=== PATIENT | female | born 1960 | race Caucasian/White ===

== ENCOUNTER 2017-07-24 06:37 | Emergency (ER) | payer OTHER ==
[2017-07-24 06:57] VITALS: BP 126/88; PULSE 64; TEMP 98.2; BMI 29.2
--- NOTE | 2017-07-24 07:17 | PDOC ---
History of Present Illness <Fely Jimenez - Last Filed: 07/24/17 08:46> - History of Present Illness Initial Comments: 07/24/17 08:49 56yo female presents to the ED for eval of L lateral neck pain that radiates from her ear to her shoulder. States pain has been present x 1 month. Seen her [employer] who ordered an ultrasound of the thyroid, that showed normal thyroid, poss cyst in parotid gland. Pt states she saw a therapist respiratory and has been doing PT. States her rheum told her friday her RF was negative. States she was dx with fibromyalgia on Friday and started cymbalta yesterday. States she couldn 't sleep overnight secondary to pain. Pt denies cp/sob. No mckeon. No f/c. No drainage from the ear. No nasal congestion. No sore throat. No trauma. No abd pain. No n/v/d. No paresthesias. No tingling. No weakness. No other complaints. <Cynthia Ordaz - Last Filed: 07/24/17 08:59> - General Chief Complaint: Pain Stated Complaint: PAIN,NECK Time Seen by Provider: 07/24/17 07:04 Past History <Fely Jimenez - Last Filed: 07/24/17 08:46> - Past Medical History Anemia: No Asthma: Yes (seasonal) Cancer: No Cardiac Disorders: No CVA: No COPD: No CHF: No Dementia: No Diabetes: No GI Disorders: No Disorders: No HTN: No Hypercholesterolemia: No Liver Disease: No Seizures: No Thyroid Disease: No - Surgical History Abdominal Surgery: Yes (myomectomy-reconstruction uterus) Appendectomy: No Cardiac Surgery: No Cholecystectomy: No Lung Surgery: No Neurologic Surgery: No Orthopedic Surgery: No - Psycho/Social/Smoking Cessation Hx Suicidal Ideation: No Smoking History: Never smoked Have you smoked in the past 12 months: No Information on smoking cessation initiated: No Hx Alcohol Use: No Drug/Substance Use Hx: No Substance Use Type: None Hx Substance Use Treatment: No <Cynthia Ordaz - Last Filed: 07/24/17 08:59> - Past Medical History Allergies/Adverse Reactions: Allergies Allergy/AdvReac Type Severity Reaction Status Date / Time No Known Drug Allergies Allergy Verified 08/06/12 09:57 seasonal Allergy Intermediate Uncoded 08/03/12 10:10 Home Medications: Ambulatory Orders Acetaminophen [Tylenol .Extra-Strength -] 500 mg PO Q6H PRN #0 tablet 08/08/12 Cyclobenzaprine HCl [Flexeril 10 mg] 10 mg PO BID PRN #10 tablet 07/24/17 Duloxetine HCl [Cymbalta] 30 mg PO DAILY 07/24/17 *Physical Exam - Vital Signs Last Vital Signs Temp Pulse Resp BP Pulse Ox 98.2 F 64 17 126/88 99 07/24/17 06:55 07/24/17 06:55 07/24/17 06:55 07/24/17 06:55 07/24/17 06:55 <Fely Jimenez - Last Filed: 07/24/17 08:46> - Vital Signs Last Vital Signs Temp Pulse Resp BP Pulse Ox 98.2 F 64 17 126/88 99 07/24/17 06:55 07/24/17 06:55 07/24/17 06:55 07/24/17 06:55 07/24/17 06:55 - Physical Exam Comments: 07/24/17 08:57 Gen: [id number], appears uncomfortable Head: nc/at HEENT: tm intact, no erythema, no bulging, no redness, no external irritation, no mastoid ttp Neck: supple, no jvd, + ttp over scalene muscles, reproduces pain, FROM of neck heart: +s1s2 reg Lungs: cta b/l abd: soft, nt/nd +bs Ext: no c/c/e, muscle strength 5/5 UE and LE, ambulates with steady gait, sensation intact Neuro: CN II-XII grossly intact, no focal deficits skin: warm, dry, intact, papular bumps - contact dermatitis to L lateral neck, no vesicles <Cynthia Ordaz - Last Filed: 07/24/17 08:59> ED Treatment Course - RADIOLOGY Radiograph Interpretation: 07/24/17 08:46 Soft Tissue Neck X-Ray Reported by Dr. Helen Monahan Impression: Degenerative changes. - Medications Given in the ED: ED Medications Discontinued Medications Generic Name Dose Route Start Last Admin Trade Name Freq PRN Reason Stop Dose Admin Ketorolac Tromethamine 60 mg 07/24/17 07:19 07/24/17 07:27 Toradol Injection - IM 07/24/17 07:20 60 mg ONCE ONE Administration <Fely Jimenez - Last Filed: 07/24/17 08:46> Medical Decision Making - Medical Decision Making 07/24/17 08:38 re-eval: pt feeling much better. no complaints at this time. FROM of cervical spine. Discussed degenerative changes seen on xray. Pt has an appt with ENT for friday and a repeat appt with her therapist respiratory for 1 month. Started cymbalta yesterday for recent dx of fibromyalgia. Pt stable for d/c to home. Ambulates with a steady gait. 07/24/17 0730 a/p: 56yo female with L lateral neck pain -pain control -flexeril -no midline ttp -no meningeal signs -toradol for pain -xray for poss DJD and referred pain, pt has not had imaging -neuro intact -reassess <Cynthia Ordaz - Last Filed: 07/24/17 08:59> *DC/Admit/Observation/Transfer - Attestations Scribe Attestion: 07/24/17 08:47 Documentation prepared by Fely Jimenez, acting as medical billing associate for Cynthia Ordaz DO. <Fely Jimenez - Last Filed: 07/24/17 08:46> - Discharge Dispostion Admit: No - Attestations Physician Attestion: 07/24/17 08:42 I, Dr. Cynthia Ordaz DO, attest that this document has been prepared under my direction and personally reviewed by me in its entirety. I further attest, that it accurately reflects all work, treatment, procedures and medical decision -making performed by me. <Cynthia Ordaz - Last Filed: 07/24/17 08:59> Diagnosis at time of Disposition: Neck pain - Discharge Dispostion Disposition: HOME Condition at time of disposition: Stable - Prescriptions Prescriptions: Cyclobenzaprine HCl [Flexeril 10 mg] 10 mg PO BID PRN #10 tablet PRN Reason: Moderate Pain - Referrals Referrals: Priyank Villalta MD [Primary Care Provider] - - Patient Instructions Printed Discharge Instructions: DI for Neck Pain Additional Instructions: Please follow up with your PMD. Please take all meds as prescribed. Please keep your appointment with your ENT and your therapist respiratory as scheduled.
[2017-07-24] MEDS ORDERED: KETOROLAC TROMETHAMINE 60 MG/2 ML VIAL IM ONE (07:19)
[2017-07-24] MEDS ORDERED: CYCLOBENZAPRINE HCL 10 MG TABLET (FP) ONE (07:19)
[2017-07-24] MEDS ORDERED: KETOROLAC TROMETHAMINE 60 MG/2 ML VIAL ONE (07:19)
[2017-07-24] MEDS ORDERED: CYCLOBENZAPRINE HCL 5 MG TABLET PO ONE (22:00)
== END 2017-07-24 08:51 | disposition home or self-care (01) ==
LOC: JER 06:37
DX: M54.2 Cervicalgia (principal)
CPT/HCPCS: 70360-TC; 99281-25

== ENCOUNTER 2022-05-06 04:51 | Day surgery (SDC) | payer OTHER ==
[2022-05-02 16:29] VITALS: BMI 30.9
[2022-05-06 08:48] VITALS: TEMP 98
[2022-05-06 09:58] VITALS: BP 112/76; PULSE 71
== END 2022-05-06 09:57 | disposition home or self-care (01) ==
LOC: JASU-ENDO 04:51
PROVIDERS: ATTEND Internal Medicine Gastroenterology
PROC: 0DBL8ZX Excision of Transverse Colon, Via Natural or Artificial Opening Endoscopic, Diagnostic (ICD-10-PCS; 2022-05-06)
PROC: 0DBK8ZX Excision of Ascending Colon, Via Natural or Artificial Opening Endoscopic, Diagnostic (ICD-10-PCS; principal; 2022-05-06 09:00)
DX: Z12.11 Encounter for screening for malignant neoplasm of colon (principal); Z86.010 Personal history of colon polyps; D12.2 Benign neoplasm of ascending colon; D12.3 Benign neoplasm of transverse colon
CPT/HCPCS: 88305-TC